=== PATIENT | female | born 1990 | race Two or more races ===

== ENCOUNTER 2020-06-16 17:11 | Inpatient (IN) | payer OTHER ==
[~2020-06-16] VITALS: Ht 182.9 cm; Wt 113.4 kg
[2020-06-16] MEDS ORDERED: PRENATE ELITE1 EAC2 PO (20:00)
== END 2020-06-19 13:30 | DRG 833 ==
LOC: LDR 17:11 → OB/GYN 17:11
PROVIDERS: Obstetrics & Gynecology Maternal & Fetal Medicine; ADMIT Obstetrics & Gynecology; ATTEND Obstetrics & Gynecology
PROC: 4A1HXCZ Monitoring of Products of Conception, Cardiac Rate, External Approach (ICD-10-PCS; principal; 2020-06-16 20:00)
DX: O34.32 Maternal care for cervical incompetence, second trimester (principal)

== ENCOUNTER → 2020-06-16 | Outpatient (CLI) | payer OTHER ==
[~2020-06-16] MED LIST: PRENATE ELITE1 EAC2 PO
== END | disposition home or self-care (01) ==
LOC: PRENATAL 14:06
PROVIDERS: ATTEND Obstetrics & Gynecology Maternal & Fetal Medicine
DX: O26.842 Uterine size-date discrepancy, second trimester (principal); O26.872 Cervical shortening, second trimester; Z36.89 Encounter for other specified antenatal screening; Z3A.15 15 weeks gestation of pregnancy

== ENCOUNTER → 2020-07-11 | Outpatient (CLI) | payer OTHER | END | disposition home or self-care (01) | LOC: PRENATAL 09:59 | PROVIDERS: ATTEND Obstetrics & Gynecology Maternal & Fetal Medicine | DX: O26.872 Cervical shortening, second trimester (principal); O35.0XX1 Maternal care for (suspected) central nervous system malformation in fetus, fetus 1; O35.3XX1 Maternal care for (suspected) damage to fetus from viral disease in mother, fetus 1; O98.512 Other viral diseases complicating pregnancy, second trimester; Z36.89 Encounter for other specified antenatal screening; Z3A.19 19 weeks gestation of pregnancy ==

== ENCOUNTER → 2020-08-08 | Outpatient (CLI) | payer OTHER | END | disposition home or self-care (01) | LOC: PRENATAL 10:00 | PROVIDERS: ATTEND Obstetrics & Gynecology Maternal & Fetal Medicine | DX: O26.842 Uterine size-date discrepancy, second trimester (principal); O26.872 Cervical shortening, second trimester; Z36.89 Encounter for other specified antenatal screening; Z3A.23 23 weeks gestation of pregnancy ==

== ENCOUNTER → 2021-02-05 08:00 | Outpatient (CLI) | payer OTHER ==
[~2021-02-05 08:00] MED LIST changes: +FLAGYL500MG PO; +KETO10TA2 PO; +PROMETRIUM200 MG PO; +ZITHROMAX200 MG PO
== END | disposition home or self-care (01) ==
LOC: LAB 08:00 → ADM 15:15 → CIR.AMB 02-08 15:15 → EDSTATUS 02-08 15:15
PROVIDERS: ATTEND Obstetrics & Gynecology Maternal & Fetal Medicine
DX: O34.32 Maternal care for cervical incompetence, second trimester (principal)

== ENCOUNTER → 2021-02-05 | Outpatient (CLI) | payer OTHER ==
[~2021-02-05] MED LIST changes: +AMOX1TAB5 PO; +PEPCID AC20 MG PO
== END | disposition home or self-care (01) ==
LOC: PRENATAL 12:15
PROVIDERS: ATTEND Obstetrics & Gynecology Maternal & Fetal Medicine
DX: O34.31 Maternal care for cervical incompetence, first trimester (principal); O36.80X1 Pregnancy with inconclusive fetal viability, fetus 1; Z36.89 Encounter for other specified antenatal screening; Z3A.14 14 weeks gestation of pregnancy

== ENCOUNTER 2021-02-10 18:01 | Inpatient (IN) | payer OTHER ==
[~2021-02-10] VITALS: Ht 182.9 cm; Wt 113.4 kg
[~2021-02-10 18:01] MED LIST changes: -FLAGYL500MG PO; -KETO10TA2 PO; -PROMETRIUM200 MG PO; -ZITHROMAX200 MG PO
[2021-02-12] MEDS ORDERED: FLAGYL500MG PO (08:13)
[2021-02-12] MEDS ORDERED: ZITHROMAX200 MG PO (08:14)
[2021-02-12] MEDS ORDERED: PROMETRIUM200 MG PO (09:15)
== END 2021-02-12 09:39 | disposition home or self-care (01) | DRG 819 ==
LOC: ER 18:01 → SEC-K 22:19 → O/R 22:55 → OB/GYN 02-11 01:22
PROVIDERS: ADMIT Obstetrics & Gynecology; ATTEND Obstetrics & Gynecology
PROC: 0UVC7ZZ Restriction of Cervix, Via Natural or Artificial Opening (ICD-10-PCS; principal; 2021-02-10 21:00)
DX: O34.32 Maternal care for cervical incompetence, second trimester (principal); O26.872 Cervical shortening, second trimester; Z3A.15 15 weeks gestation of pregnancy

== ENCOUNTER 2021-02-21 21:11 | Inpatient (IN) | payer OTHER ==
[~2021-02-21] VITALS: Ht 182.9 cm; Wt 109.8 kg
[~2021-02-21 21:11] MED LIST changes: +FLAGYL500MG PO; +PROMETRIUM200 MG PO; +ZITHROMAX200 MG PO
[2021-02-22] MEDS ORDERED: KETO10TA2 PO (12:09)
== END 2021-02-22 13:03 | disposition home or self-care (01) | DRG 769 ==
LOC: SURH 21:11 → LDR 21:11 → SURH 02-22 02:16
PROVIDERS: ADMIT Obstetrics & Gynecology; ATTEND Obstetrics & Gynecology
PROC: 10D17ZZ Extraction of Products of Conception, Retained, Via Natural or Artificial Opening (ICD-10-PCS; principal; 2021-02-22)
PROC: 0UQC7ZZ Repair Cervix, Via Natural or Artificial Opening (ICD-10-PCS; 2021-02-22)
PROC: 0UCC7ZZ Extirpation of Matter from Cervix, Via Natural or Artificial Opening (ICD-10-PCS; 2021-02-22)
PROC: 3E0P7VZ Introduction of Hormone into Female Reproductive, Via Natural or Artificial Opening (ICD-10-PCS; 2021-02-22)
DX: O72.2 Delayed and secondary postpartum hemorrhage (principal); O34.32 Maternal care for cervical incompetence, second trimester; O71.3 Obstetric laceration of cervix; Z3A.15 15 weeks gestation of pregnancy

== ENCOUNTER 2021-06-26 12:46 | Inpatient (IN) | payer OTHER ==
[~2021-06-26] VITALS: Ht 182.9 cm; Wt 114.3 kg
[~2021-06-26 12:46] MED LIST changes: +KETO10TA2 PO
[2021-06-27] MEDS ORDERED: ZIAC 5-6.25 MG1 EACH (08:20)
== END 2021-06-29 09:53 | disposition home or self-care (01) | DRG 747 ==
LOC: O/R 06-27 05:50 → OB/GYN 06-27 07:15
PROVIDERS: ADMIT Obstetrics & Gynecology; ATTEND Obstetrics & Gynecology
PROC: 0UVC0ZZ Restriction of Cervix, Open Approach (ICD-10-PCS; principal; 2021-06-27 07:15)
DX: N88.3 Incompetence of cervix uteri (principal); I10 Essential (primary) hypertension; Z98.891 History of uterine scar from previous surgery